=== PATIENT | female | born 1980 | race Caucasian/White ===

== ENCOUNTER 2017-12-29 12:06 | Emergency (ER) | payer OTHER ==
[~2017-12-29] VITALS: Ht 175.3 cm; Wt 90.7 kg
[~2017-12-29 12:06] MED LIST: ACYCLOVIR 400400 MG PO; AMOXICILLIN 50500 M1 PO; CLARITIN10 MG PO; FLAGYL500 MG PO; FLEXERIL PO; JENCYCLA0.35 MG PO; LATUDA80 MG PO; LITHIUM CARBON300 M3 PO; PEPCID40 MG PO; PREDNISONE 20 M20 MG PO; SPRINTEC1 EACH PO; SUDAFED PE10 MG PO; TRAMADOL 50 MG50 MG PO; TRILEPTAL300 MG PO; VISTARIL 25 MG25 M1 PO
[2017-12-29] MEDS ORDERED: TRAMADOL 50 MG50 MG PO (12:18)
[2017-12-29 12:45] LABS: ABSOLUTE NEUTROPHILS 4.3 thou/uL (1.4-8.2); BASOPHILS 0.9 % (0.0-2.0); EOSINOPHILS 6.8 % (0.0-3.0); HEMATOCRIT 36.8 % (37.0-47.0); HEMOGLOBIN 12.4 gm/dL (12.0-15.0); MCH 30.3 pg (26.0-34.0); MCHC 33.7 g/dL (28.0-37.0); MCV 89.7 fL (80.0-100.0); MONOCYTES 8.2 % (1.0-8.0); PLATELET COUNT 240 thou/uL (150-400); POLYS 54.1 % (36.0-66.0); RBC 4.11 mil/uL (4.20-5.00); RDW 13.6 % (10.5-14.5); WBC 7.9 thou/uL (4.0-11.0)
[2017-12-29 12:57] LABS: CALCIUM 9.1 mg/dL (8.5-10.1); POTASSIUM 3.8 mmol/L (3.5-5.1)
[2017-12-29 13:53] LABS: URINE BILIRUBIN NEGATIVE (Negative); URINE BLOOD NEGATIVE (Negative); URINE CLARITY CLEAR; URINE COLOR YELLOW; URINE GLUCOSE-RANDOM* NEGATIVE (Negative); URINE KETONES NEGATIVE (Negative); URINE LEUKOCYTES-REFLEX NEGATIVE (Negative); URINE NITRITE-REFLEX NEGATIVE (Negative); URINE PROTEIN (DIPSTICK) NEGATIVE (Negative); URINE SPECIFIC GRAVITY >= 1.030 (1.005-1.035); URINE UROBILINOGEN 0.2 E.U./dl (0.2-1.0)
[2017-12-29 13:59] LABS: AMP/METHAMP POSITIVE (Negative); BARBITURATES Negative (Negative); BENZODIAZEPINES Negative (Negative); COCAINE Negative (Negative); METHADONE Negative (Negative); OPIATES Negative (Negative); PCP POSITIVE (Negative)
[2017-12-29] MEDS ORDERED: NAPROSYN500 MG PO (14:21)
[2017-12-29 14:28] VITALS: BP 124/74
[2017-12-30 15:06] LABS: NEISSERIA GONORRHEA-PCR Negative (Negative)
== END 2017-12-29 14:30 | disposition home or self-care (01) ==
LOC: ER 12:06
PROVIDERS: Physician Assistant
DX: N80.9 Endometriosis, unspecified (principal); F19.10 Other psychoactive substance abuse, uncomplicated; F31.9 Bipolar disorder, unspecified; F41.9 Anxiety disorder, unspecified; F17.210 Nicotine dependence, cigarettes, uncomplicated

== ENCOUNTER 2019-01-11 13:21 | Emergency (ER) | payer OTHER ==
[~2019-01-11] VITALS: Ht 175.3 cm; Wt 90.7 kg
[~2019-01-11 13:21] MED LIST changes: +NAPROSYN500 MG PO
[2019-01-11 13:23] VITALS: BP 129/77
[2019-01-11 13:44] LABS: URINE BILIRUBIN NEGATIVE (Negative); URINE BLOOD 2+ (Negative); URINE COLOR YELLOW; URINE GLUCOSE-RANDOM* NEGATIVE (Negative); URINE KETONES TRACE (Negative); URINE NITRITE-REFLEX NEGATIVE (Negative); URINE PROTEIN (DIPSTICK) TRACE (Negative); URINE UROBILINOGEN 0.2 E.U./dl (0.2-1.0)
[2019-01-11 13:45] LABS: URINE LEUKOCYTES-REFLEX 3+ (Negative)
[2019-01-11 13:46] LABS: URINE CLARITY HAZY
[2019-01-11 14:02] LABS: URINE WBC-REFLEX >25 Many /HPF (0-5)
[2019-01-11 14:03] LABS: SQUAMOUS >10 Many /LPF (0-3)
[2019-01-11 14:04] LABS: CASTS None Seen /LPF (None Seen); CRYSTALS None Seen /LPF (None Seen)
[2019-01-11 14:06] LABS: YEAST-REFLEX Present (None Seen)
== END 2019-01-11 15:16 | disposition home or self-care (01) ==
LOC: ER 13:21
PROVIDERS: Student in an Organized Health Care Education/Training Program
DX: A59.01 Trichomonal vulvovaginitis (principal); N39.0 Urinary tract infection, site not specified; B37.9 Candidiasis, unspecified; F17.210 Nicotine dependence, cigarettes, uncomplicated